=== PATIENT | male | born 1995 | race Caucasian/White ===

== ENCOUNTER 2017-05-20 10:50 | Inpatient (IN) | payer BC ==
[2017-05-20 12:09] LABS: Hematocrit 48 % (42-52); Mean Corpuscular HGB Conc 34 g/dl (31-36); Mean Corpuscular Hemoglobin 30 pg (27-31); Mean Corpuscular Volume 90 fL (80-94); Mean Platelet Volume 8 um3 (7.4-10.4); Red Blood Count 5.28 10^6/ul (4.0-5.4); Red Cell Distribution Width 13 % (10.5-15); White Blood Count 7.2 10^3/ul (3.5-10.8)
[2017-05-20 12:20] LABS: ALT 29 U/L (7-52); AST 24 U/L (13-39); Alkaline Phosphatase 64 U/L (34-104); Anion Gap 6 mmol/L (2-11); BUN/Creatinine Ratio 19.2 (8-20); Blood Urea Nitrogen 20 mg/dL (6-24); CO2 Carbon Dioxide 27 mmol/L (22-32); Calcium 10.1 mg/dL (8.6-10.3); Chloride 104 mmol/L (101-111); EGFR African American 115.9 (>60); EGFR Non-African American 90.2 (>60); Globulin 2.6 g/dL (2-4); Glucose 92 mg/dL (70-100); Potassium 4.2 mmol/L (3.5-5.0); Sodium 137 mmol/L (133-145); Total Protein 7.6 g/dL (6.4-8.9)
[2017-05-20 12:30] LABS: Benzodiazepine Urine Screen None Detected (None Detect)
[2017-05-20 12:51] LABS: Acetaminophen < 15 mcg/mL; Alcohol < 10 mg/dL (<10); Salicylate < 2.50 mg/dL (<30)
[2017-05-20 12:59] LABS: TSH (Thyroid Stimulating Horm) 0.64 mcIU/mL (0.34-5.60)
[2017-05-20] MEDS ORDERED: Al Hydrox/Mg Hydrox/Simet LIQ* 30 ML UDC PO PRN (15:44)
[2017-05-20] MEDS ORDERED: Acetaminophen TAB* 325 MG PO PRN (15:44)
[2017-05-20] MEDS ORDERED: hydrOXYzine HCL TAB* 50 MG PO PRN (15:45)
--- NOTE | 2017-05-20 18:38 | ED ---
Elder Smith Angela, scribed for Joaquin Arroyo MD on 05/20/17 at 1115 . Psychiatric Complaint - HPI Summary HPI Summary: This pt is a 22 y/o male accompanied by his father presenting to [facility] for SI. Father reports that the pt has stated he does not want to live any longer. Per father, pt has asked him to kill him several times over the past 24 hours. Father states the pt was crying uncontrollably yesterday. Per father, pt has also been sick over the past few days with cough and was taking a prescription cough medicine. Pt currently denies SI. He states he has not had any prior suicide attempts. Pt notes he sees a therapist locally. He is currently on Wellbutrin. PMHx includes depression, substance abuse. Pt states using tobacco, alcohol, and marijuana. - History Of Current Complaint Chief Complaint: EDMentalHealth Time Seen by Provider: 05/20/17 10:55 Hx Obtained From: Patient, Family/Professor Of Violin - father Onset/Duration: Lasting Hours, Still Present Timing: Hours Aggravating Factor(s): Nothing Alleviating Factor(s): Nothing Related History: Positive For: Prior Psychiatric Issues - drug abuse Has Suicidal: Reports: Thoughts - per father. Denies: Has Prior Attempt(s) - Allergies/Home Medications Allergies/Adverse Reactions: Allergies Allergy/AdvReac Type Severity Reaction Status Date / Time No Known Allergies Allergy Verified 05/20/17 10:54 Home Medications: Home Medications buPROPion SR TAB* [Wellbutrin SR TAB*] 150 mg PO QAM 05/20/17 [History Confirmed 05/20/17] busPIRone TAB* [Buspar TAB*] 5 mg PO TID 05/20/17 [History Confirmed 05/20/17] PMH/Surg Hx/FS Hx/Imm Hx Endocrine/Hematology History: Denies: Hx Diabetes Cardiovascular History: Denies: Hx Hypertension Sensory History: Reports: Hx Contacts or Glasses Opthamlomology History: Reports: Hx Contacts or Glasses Psychiatric History: Reports: Hx Depression, Hx Community Mental Health Tx, Hx Substance Abuse Denies: Hx of Violent Episodes Against Others - Surgical History Surgery Procedure, Year, and Place: Adenoids Removed Infectious Disease History: No Infectious Disease History: Denies: Traveled Outside the [place] in Last 30 Days - Family History Known Family History: Positive: Cardiac Disease, Diabetes - Social History Occupation: Student - [employer] Alcohol Use: Weekly Substance Use Type: Reports: Marijuana Smoking Status (MU): Current Every Day Smoker Review of Systems Positive: Other - crying uncontrollably. Negative: Fever, Chills Positive: Cough Neurological: Other - NEG: SI, prior suicidal attempts All Other Systems Reviewed And Are Negative: Yes Physical Exam - Summary Physical Exam Summary: VITAL SIGNS: Reviewed. GENERAL: Patient is a well-developed and nourished male who is lying comfortable in the stretcher. Patient is not in any acute respiratory distress. HEAD AND FACE: No signs of trauma. No ecchymosis, hematomas or skull depressions. No sinus tenderness. EYES: PERRLA, EOMI x 2, No injected conjunctiva, no nystagmus. EARS: Hearing grossly intact. Ear canals and tympanic membranes are within normal limits. MOUTH: Oropharynx within normal limits. NECK: Supple, trachea is midline, no adenopathy, no JVD, no carotid bruit, no c- spine tenderness, neck with full ROM. CHEST: Symmetric, no tenderness at palpation LUNGS: Clear to auscultation bilaterally. No wheezing or crackles. CVS: Regular rate and rhythm, S1 and S2 present, no murmurs or gallops appreciated. ABDOMEN: Soft, non-tender. No signs of distention. No rebound no guarding, and no masses palpated. Bowel sounds are normal. EXTREMITIES: FROM in all major joints, no edema, no cyanosis or clubbing. NEURO: Alert and oriented x 3. No acute neurological deficits. Speech is normal and follows commands. SKIN: Dry and warm Triage Information Reviewed: Yes Vital Signs On Initial Exam: Initial Vitals Temp Pulse Resp BP Pulse Ox 99.2 F 81 20 146/78 95 05/20/17 10:51 05/20/17 10:51 05/20/17 10:51 05/20/17 10:51 05/20/17 10:51 Vital Signs Reviewed: Yes Diagnostics - Vital Signs Vital Signs Temp Pulse Resp BP Pulse Ox 05/20/17 10:51 99.2 F 81 20 146/78 95 - Laboratory Lab Results: Lab Results 05/20/17 05/20/17 05/20/17 Range/Units 11:30 11:50 11:50 WBC 7.2 (3.5-10.8) 10^3/ul RBC 5.28 (4.0-5.4) 10^6/ul Hgb 16.0 (14.0-18.0) g/dl Hct 48 (42-52) % MCV 90 (80-94) fL MCH 30 (27-31) pg MCHC 34 (31-36) g/dl RDW 13 (10.5-15) % Plt Count 207 (150-450) 10^3/ul MPV 8 (7.4-10.4) um3 Neut % (Auto) 64.8 (38-83) % Lymph % (Auto) 21.7 L (25-47) % Thomas % (Auto) 8.0 (1-9) % Eos % (Auto) 4.8 (0-6) % Baso % (Auto) 0.7 (0-2) % Absolute Neuts (auto) 4.7 (1.5-7.7) 10^3/ul Absolute Lymphs (auto) 1.6 (1.0-4.8) 10^3/ul Absolute Monos (auto) 0.6 (0-0.8) 10^3/ul Absolute Eos (auto) 0.3 (0-0.6) 10^3/ul Absolute Basos (auto) 0.1 (0-0.2) 10^3/ul Absolute Nucleated RBC 0 10^3/ul Nucleated RBC % 0 Sodium 137 (133-145) mmol/L Potassium 4.2 (3.5-5.0) mmol/L Chloride 104 (101-111) mmol/L Carbon Dioxide 27 (22-32) mmol/L Anion Gap 6 (2-11) mmol/L BUN 20 (6-24) mg/dL Creatinine 1.04 (0.67-1.17) mg/dL Est GFR ( Amer) 115.9 (>60) Est GFR (Non-Af Amer) 90.2 (>60) BUN/Creatinine Ratio 19.2 (8-20) Glucose 92 (70-100) mg/dL Calcium 10.1 (8.6-10.3) mg/dL Total Bilirubin 1.00 (0.2-1.0) mg/dL AST 24 (13-39) U/L ALT 29 (7-52) U/L Alkaline Phosphatase 64 (34-104) U/L Total Protein 7.6 (6.4-8.9) g/dL Albumin 5.0 (3.2-5.2) g/dL Globulin 2.6 (2-4) g/dL Albumin/Globulin Ratio 1.9 (1-3) TSH 0.64 (0.34-5.60) mcIU/mL Salicylates < 2.50 (<30) mg/dL Urine Opiates Screen None detected (None Detect) Acetaminophen < 15 mcg/mL Ur Barbiturates Screen None detected (None Detect) Ur Phencyclidine Scrn None detected (None Detect) Ur Amphetamines Screen None detected (None Detect) U Benzodiazepines Scrn None detected (None Detect) Urine Cocaine Screen None detected (None Detect) U Cannabinoids Screen Presumptive positive H (None Detect) Serum Alcohol < 10 (<10) mg/dL Result Diagrams: 05/20/17 11:50 05/20/17 11:50 Lab Statement: Any lab studies that have been ordered have been reviewed, and results considered in the medical decision making process. Course/Dx - Course Assessment/Plan: This pt is a 22 y/o male accompanied by his father presenting to [facility] for SI. Father reports that the pt has stated he does not want to live any longer. Per father, pt has asked him to kill him several times over the past 24 hours. Father states the pt was crying uncontrollably yesterday. Per father, pt has also been sick over the past few days with cough and was taking a prescription cough medicine. Pt currently denies SI. He states he has not had any prior suicide attempts. Pt notes he sees a therapist locally. He is currently on Wellbutrin. PMHx includes depression, substance abuse. Pt states using tobacco, alcohol, and marijuana. Test results without any significant abnormalities except for positive cannabinoids. Pt is medically cleared. He is waiting for [facility]. Pt is hemodynamically stable, alert and oriented x3. Pt was seen and evaluated by Dr. Nation, who recommends admission. Pt will be involuntarily admitted to [facility] with a diagnosis of depression. - Differential Dx/Clinical Impression Differential Diagnosis/HQI/PQRI: Positive: Anxiety, Depression, Suicidal Ideation Provider Diagnosis: Depression Discharge - Discharge Plan Condition: Stable Disposition: [facility]CHIATRIC FACILITY-[facility] The documentation as recorded by the Elder maza Angela accurately reflects the service I personally performed and the decisions made by me, Joaquin Arroyo MD.
[2017-05-20] MEDS: busPIRone TAB* 5 MG PO SCH (21:42)
[2017-05-21] MEDS: busPIRone TAB* 5 MG PO SCH ×2 (08:23→15:57)
[2017-05-21] MEDS ORDERED: buPROPion SR TAB.SR* 150 MG PO SCH (09:00)
--- NOTE | 2017-05-21 10:56 | ADMNOTE ---
Identification - Identify Employment Status: Student Hx Psychiatric Hospitalization: Yes Arrived to Hospital Via: Car History - Objective HPI: HISTORY AND PHYSICAL History of Present Illness 22 yo [facility] brought to the emergency room by father today due to severe depression, 2 days of crying, and active suicidal ideation. patient had contacted father couple of days ago and asked father to kill him because he wanted to be . Parents were concerned so they drove from [place] to [place] and subsequently brought Blake to the ED for evaluation. Majority of history taken from patient who is reliable historian. Blake reports he is an only child and [place] [place]. 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 no hyperactivty, oppositional behavior, impulse control problems, conduct problems in his history. 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 Blake reports that over past 4 years he has noticed a pattern of periods of depression which alternate or give way to periods of elevated mood( see below)He reports depressions predominate and can last weeks or months. during this time the level of his dysphoria can wax and wane. other symptoms include anergia, amotivation, hypersomnolence, tendency to isolate, low self esteem, preoccupation with negative themes, feeling of worthlessness and hopelessness and suicidal ideation. Blake was hospitalized for first time in first semester of his soph year during one of these depressive periods. He was abusing alcohol heavily during that time. He was discharged on no medication as his suicidal ideation remitted after detoxification in the hospital. 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 He was prescribed Lexapro and Gabapentin. He reports lexapro helped with depression and his suicidal thoughts quite a bit. He subsequently went to [facility] for 6 months to do rest of sophmore year abroad. He reports drinking heavily and using marijuana heavily during this time. He was inconsistent with his medications. for most of drew year and senior year He has become aware that his depressions are often punctuated by periods of heriberto which often last as longs as 7 to 10 days. during these times he describes increased goal directed behavior (cleaning all night), ruminating endlessly about projects that he would like to complete in his major , excessive speech, racing thoughts, inflated self worth, grandiose delusions (believes that he is a god or "demigod with special abilities and de la torre"). overspending. despite having GPA of 3.7 Blake reports he is consumed and preoccupied with anxiety worry and dread. He procrastinates all of his work to the last moments and as a result he is possessed with fear that he will not complete his projects and will fail. took on independent study this semester and did not initiate any of the work and as a result he had to abandon the project. severe sleep disturbance Past Psychiatric history: as above. no history of suicide attempts, history of SI during depressive periods in past no history of self injury family history significant for father with ADHD and Bipolar Disorder PMH: none no allergies Psychosocial History: grew up in [place]. attended [employer] from K through 12 th grade. mother is a data sciences director. Father is a microfilm equipment inspector. Did well academically in school doing well currently in [place] with 3.7 GPA however crippled by his avoidance of school work, racing thoughts, mood dysregulation, agitation. no legal problems. currently has a girlfriend. He is sexually active. denies history of physical or sexual trauma. Substance History: Cannabis use since high school. smokes 3 to 4 times daily Alcohol use has escalated in college. drank heavily sophmore year tends to drink and abuse marijuana as aself medication for his mood swings. denies other drug use. Vital Signs admission vitals were all within normal limits ROS: non contributory per Dr. Arroyo who cleared patient medicall in the Emergency room on 05/20/2017 Physical Exam: unremarkable per Dr. Arroyo who performed complete physical. see Dr. Arroyo H and P dated 05/20/2017 Lab Results: Laboratory Last Values WBC 7.2 10^3/ul (3.5-10.8) 05/20/17 11:50 RBC 5.28 10^6/ul (4.0-5.4) 05/20/17 11:50 Hgb 16.0 g/dl (14.0-18.0) 05/20/17 11:50 Hct 48 % (42-52) 05/20/17 11:50 MCV 90 fL (80-94) 05/20/17 11:50 MCH 30 pg (27-31) 05/20/17 11:50 MCHC 34 g/dl (31-36) 05/20/17 11:50 RDW 13 % (10.5-15) 05/20/17 11:50 Plt Count 207 10^3/ul (150-450) 05/20/17 11:50 MPV 8 um3 (7.4-10.4) 05/20/17 11:50 Neut % (Auto) 64.8 % (38-83) 05/20/17 11:50 Lymph % (Auto) 21.7 % (25-47) L 05/20/17 11:50 Owen % (Auto) 8.0 % (1-9) 05/20/17 11:50 Eos % (Auto) 4.8 % (0-6) 05/20/17 11:50 Baso % (Auto) 0.7 % (0-2) 05/20/17 11:50 Absolute Neuts (auto) 4.7 10^3/ul (1.5-7.7) 05/20/17 11:50 Absolute Lymphs (auto) 1.6 10^3/ul (1.0-4.8) 05/20/17 11:50 Absolute Monos (auto) 0.6 10^3/ul (0-0.8) 05/20/17 11:50 Absolute Eos (auto) 0.3 10^3/ul (0-0.6) 05/20/17 11:50 Absolute Basos (auto) 0.1 10^3/ul (0-0.2) 05/20/17 11:50 Absolute Nucleated RBC 0 10^3/ul 05/20/17 11:50 Nucleated RBC % 0 05/20/17 11:50 Sodium 137 mmol/L (133-145) 05/20/17 11:50 Potassium 4.2 mmol/L (3.5-5.0) 05/20/17 11:50 Chloride 104 mmol/L (101-111) 05/20/17 11:50 Carbon Dioxide 27 mmol/L (22-32) 05/20/17 11:50 Anion Gap 6 mmol/L (2-11) 05/20/17 11:50 BUN 20 mg/dL (6-24) 05/20/17 11:50 Creatinine 1.04 mg/dL (0.67-1.17) 05/20/17 11:50 Est GFR ( Amer) 115.9 (>60) 05/20/17 11:50 Est GFR (Non-Af Amer) 90.2 (>60) 05/20/17 11:50 BUN/Creatinine Ratio 19.2 (8-20) 05/20/17 11:50 Glucose 92 mg/dL (70-100) 05/20/17 11:50 Calcium 10.1 mg/dL (8.6-10.3) 05/20/17 11:50 Total Bilirubin 1.00 mg/dL (0.2-1.0) 05/20/17 11:50 AST 24 U/L (13-39) 05/20/17 11:50 ALT 29 U/L (7-52) 05/20/17 11:50 Alkaline Phosphatase 64 U/L (34-104) 05/20/17 11:50 Total Protein 7.6 g/dL (6.4-8.9) 05/20/17 11:50 Albumin 5.0 g/dL (3.2-5.2) 05/20/17 11:50 Globulin 2.6 g/dL (2-4) 05/20/17 11:50 Albumin/Globulin Ratio 1.9 (1-3) 05/20/17 11:50 TSH 0.64 mcIU/mL (0.34-5.60) 05/20/17 11:50 Salicylates < 2.50 mg/dL (<30) 05/20/17 11:50 Urine Opiates Screen None detected (None Detect) 05/20/17 11:30 Acetaminophen < 15 mcg/mL 05/20/17 11:50 Ur Barbiturates Screen None detected (None Detect) 05/20/17 11:30 Ur Phencyclidine Scrn None detected (None Detect) 05/20/17 11:30 Ur Amphetamines Screen None detected (None Detect) 05/20/17 11:30 U Benzodiazepines Scrn None detected (None Detect) 05/20/17 11:30 Urine Cocaine Screen None detected (None Detect) 05/20/17 11:30 U Cannabinoids Screen Presumptive positive (None Detect) H 05/20/17 11:30 Serum Alcohol < 10 mg/dL (<10) 05/20/17 11:50 Exam Appearance: Well Developed/Nourished Hygiene: Normal Grooming: Fairly Well Kept Psychomotor Activities: Normal Exhibits Abnormal Movement: No Attitude and Relatedness: Well Related Eye Contact: Good - Speech Quality: Unpressured Latencies: Normal Quantity: Appropriate Patient's Decription of Mood: depressed Observed Affect: Labile Affect Consistent with: Dysphoria Patient's Thought Process: Over Inclusive Thought Content: Yes Passive Wish - hopeless, strong wish to end his life , Yes Suicidal Planning - asked father to end his life, contracts to let staff know if he has urge to act on his suicidal thoughts, No Homicidal Ideation, No Paranoid Ideation Experiencing Hallucinations: No, Sensorium is Clear Type of Hallucinations: Visual: No, Auditory: No, Command: No Level of Consciousness: Alert Orientation: Yes Intact, Yes Orientated to Time, Yes Orientated to Place, Yes Orientated to Person Impulse Control: Intact Insight and Judgement: Fair Impression - Impression Clinical Impression: 22 year old senior with history of child onset attention deficits, depressive symptoms since mid teens and in past 4 years prescence of manic episodes lasting 1 to 2 weeks which alternate with depressive episodes with longer duration. patient last had manic episode in March 2017 which lasted two weeks. since then he has been in a profoundly depressed state, unable to function at school, and preoccupied with thoughts of ending his life. patient was brought to hospital by his father. He is gravely disabled and presents as a potential danger to self given the severity of his suicidal ideation. He requires inpatient psychiatric admission and is admitted on involuntary status Inpatient DSM-IV Dx: Bipolar Disorder Type I current episode Depressed severe without psychotic features. Attention Deficit Hyperactivity Disorder inattentive type. anxiety disorder unspecified Merits Inpatient Hospitalization: Yes Plan - Treatment Plan Treatment Plan: Plan: admit to [facility] on involuntary status Q15 min observation blood to be drawn in am for b12, folate, free T4, Total T4, rpr,lyme screen d/c Buspar Change Wellbutrin Sr to XR formulation and increase to 300 mg QAM to target adhd and depressive symptoms Start Depakote ER 500 mg X 1 day then 750 mg X 1 day then 1000 mg QHS thereafter for maintenance and preventetive treatment of Bipolar I Start Latuda 20 mg q5 pm with food for acute/abortive treatment of bipolar depressive episode Temazepam 15 mg qhs prn insomnia. may repeat X1 nightly On 05/24/2017 begin Focalin ER 15 mg QAM for treatment of ADHD patient and his parents gave informed consent to start the above medications Continued Medication Management: Start Medication - see above Medications: Current Medications Acetaminophen (Tylenol Tab*) 650 mg PO Q4H PRN PRN Reason: for pain; or Temp >101 F Al Hydrox/Mg Hydrox/Simethicone (Maalox Plus*) 30 ml PO Q4H PRN PRN Reason: INDIGESTION Bupropion HCl (Wellbutrin Sr Tab*) 150 mg PO DAILY [facility] Last Admin: 05/21/17 08:23 Dose: 150 mg Buspirone HCl (Buspar Tab*) 5 mg PO TID [facility] Last Admin: 05/21/17 08:23 Dose: 5 mg Hydroxyzine HCl (Atarax Tab*) 50 mg PO Q6H PRN PRN Reason: ANXIETY - Discharge Plan Discharge Plan: Outpatient Follow Up - partial hospitalization program/ intensive outpatient program in [place], patient will be taking semester off from college and returning [facility] with his parents. , psychiatrist appointment [facility] upon discharge
[2017-05-21] MEDS: Lurasidone(*) 20 MG TAB PO SCH (17:18)
[2017-05-21] MEDS ORDERED: LORazepam TAB(*) 0.5 MG PO PRN ×2 (20:04→20:10)
[2017-05-21] MEDS ORDERED: Divalproex ER TAB(*) 500 MG PO ONE (21:00)
[2017-05-21] MEDS: Temazepam CAP* 15 MG PO PRN (21:15)
[2017-05-22] MEDS: BuPROPion XL* 300 MG TAB.XL PO SCH (08:27)
[2017-05-22] MEDS: Lurasidone(*) 20 MG TAB PO SCH (17:35)
[2017-05-22] MEDS: Temazepam CAP* 15 MG PO PRN (20:45)
[2017-05-22] MEDS ORDERED: Divalproex ER TAB(*) 250 MG PO ONE (21:00)
[2017-05-23] MEDS: BuPROPion XL* 300 MG TAB.XL PO SCH (07:58)
[2017-05-23] MEDS ORDERED: Mouth Piece, Nicotine* 1 EACH CARTRIDGE INH ONE (13:00)
[2017-05-23] MEDS: Nicotine Inhaler* 10 MG AMP INH PRN (14:06)
[2017-05-23] MEDS: Lurasidone(*) 20 MG TAB PO SCH (17:18)
--- NOTE | 2017-05-23 17:23 | PN ---
Subjective - Subjective Service Type: 92710 Hosp care 15 min low complexity Subjective: Earlier in the morning Blake vomited twice after he took his meds in empty stomach and was continuing to have N & V until he ate. It was much less later during the day. Still feeling sad and suicidal which he doesn't think as pressing as it was before admission here. Also he is able to distract self better now. His parents' visit was helpful. Objective - Appearance Appearance: Well Developed/Nourished Dysmorphic Features: No Hygiene: Normal Grooming: Fairly Well Kept - Behavior Psychomotor Activities: Normal Exhibits Abnormal Movement: No - Attitude and Relatedness Attitude and Relatedness: Appropriate Eye Contact: Good - Speech Quality: Unpressured Latencies: Normal Quantity: Appropriate - Mood Patient's Decription of Mood: "Okay" - Affect Observed Affect: Non-labile - Thought Process Patient's Thought Process: Coherent, Goal Directed Thought Content: Yes Passive Wish, No Suicidal Planning, No Homicidal Ideation, No Paranoid Ideation - Sensorium Experiencing Hallucinations: No, Sensorium is Clear Type of Hallucinations: Visual: No, Auditory: No, Command: No - Level of Consciousness Level of Consciousness: Alert Orientation: Yes Intact, Yes Orientated to Time, Yes Orientated to Place, Yes Orientated to Person - Impulse Control Impulse Control: Intact - Insight and Judgement Insight and Judgement: Fair - Group Participation Particating in Group Activities: Yes - Medication Management Medication Management Adherence: Yes Assessment - Assessment Merits Inpatient Hospitalization: For Stabilization, For Discharge Planning Inpatient DSM-IV Dx: Bipolar Disorder Type I current episode Depressed severe without psychotic features. Attention Deficit Hyperactivity Disorder inattentive type. anxiety disorder unspecified Clinical Impression: Improving but still depressed and suicidal. Plan - Plan Treatment Plan: Name: BLAKE SHELTON Birthdate: 1995 [id number] Continued Medication Management: Continue Outpt Medication Medications: Current Medications Acetaminophen (Tylenol Tab*) 650 mg PO Q4H PRN PRN Reason: for pain; or Temp >101 F Al Hydrox/Mg Hydrox/Simethicone (Maalox Plus*) 30 ml PO Q4H PRN PRN Reason: INDIGESTION Last Admin: 05/23/17 09:23 Dose: 30 ml Bupropion HCl (Bupropion Xl*) 300 mg PO DAILY [facility] PRN Reason: Protocol Last Admin: 05/23/17 07:58 Dose: 300 mg Dexmethylphenidate HCl (Focalin Xr (Nf)) 15 mg PO DAILY [facility] Divalproex Sodium (Depakote Er Tab(*)) 1,000 mg PO BEDTIME [facility] Lorazepam (Ativan Tab(*)) 1 mg PO Q4H PRN PRN Reason: AGITATION/ANXIETY (SEVERE) Lorazepam (Ativan Tab(*)) 0.5 mg PO Q4H PRN PRN Reason: ANXIETY Last Admin: 05/23/17 02:59 Dose: 0.5 mg Lurasidone HCl (Latuda) 20 mg PO Q24H [facility] Last Admin: 05/22/17 17:35 Dose: 20 mg Nicotine (Nicotine Inhaler*) 10 mg INH Q2H PRN PRN Reason: CRAVINGS Last Admin: 05/23/17 14:06 Dose: 10 mg Temazepam (Restoril Cap*) 15 mg PO BEDTIME PRN PRN Reason: INSOMNIA Last Admin: 05/22/17 20:45 Dose: 15 mg - Discharge Plan Discharge Plan: Outpatient Follow Up Outpatient Program: Counseling/Psych Services at [facility]
[2017-05-23] MEDS: Divalproex ER TAB(*) 500 MG PO SCH (20:15)
[2017-05-23] MEDS: Temazepam CAP* 15 MG PO PRN (20:16)
[2017-05-24] MEDS: Temazepam CAP* 15 MG PO PRN (04:07)
[2017-05-24] MEDS: BuPROPion XL* 300 MG TAB.XL PO SCH (08:17)
[2017-05-24] MEDS: DEXMETHYLPHENIDATE 15 MG PO SCH (08:17)
[2017-05-24] MEDS: Nicotine Inhaler* 10 MG AMP INH PRN ×2 (08:32→15:18)
[2017-05-24] MEDS: LORazepam TAB(*) 1 MG PO PRN (10:29)
--- NOTE | 2017-05-24 12:01 | PN ---
[facility]: Group Therapy Note - Service Type Service Type: 13084 Group Psychotherapy - Cognitive Behavioral Group Therapy ( CBT):Patient was attentive and participatory in CBT programming this morning, and remained in good behavioral control. Patient expressed positive insights regarding relevant treatment interventions and goals. Blake discussed recent experiences and thoughts of suicide in an earnest and compelling fashion, and responded positively to staff and peer discussion of thoughts and peceptions. Concerns regarding bipolar I condition are secondary to poor sleep hygiene and grandiose thoughts and beliefs.
--- NOTE | 2017-05-24 15:56 | PN ---
Subjective - Subjective Service Type: 49100 Hosp care 25 min moderate complexity Subjective: weekend staff progress notes reviewed, patient interviewed X 60 min had episode of nausea/emesis over weekend but this has remitted denies any blurry vision, oversedation, dry mouth, dizziness, tachycardia, palpitations, headache, diarrhea, abdominal pain, akithisia, involuntary movements, muscle contractions , neck pain, pain with swallowing, facial tics. parents visited over weekend as they are staying locally in hotel. very productive session today: psychoeducation about ADHD, bipolar disorder, anxiety took up majority of session. Blake was very receptive to idea of learning how he can manage his symptoms by various interventions including mindfulness, CBT, DBT, relaxation, learning self monitoring techniques, learning to focus on self, learning to say no and not overextending one self, Blake also receptive to going to a [facility] adult intensive outpatient program in [place] after his discharge from hospital. He also agreed that taking medical leave from [employer] is necessary to allow him recovery time he needs. used ativan 1 mg once on wednesday and again this morning with very good effect. both times he was feeling highly anxious with racing thoughts and the ativan helped. seems to have anxiety and racing thoughts intermittently throughout the day. feels like groups are helping him alot and distracting him from negative thoughts. took focalin XR 15 mg for first time today. He feels greater clarity this morning. felt racy 90 min after taking it but then asked for ativan and has felt very calm and focused since then. NOTICES IMPROVED ENERGY,"NO DOG TIRED LIKE I USUALLY FEEL" REPORTS THAT HE USUALLY CAN FALL ASLEEP RAPIDLY THROUGH OUT THE DAY. not sleeping very well with Temazepam. MSE: well developed and nourished, good eyecontact. speech normal rate and volume mood: anxious, dysphoric affect full range normal psychomotor behavior TP organized TC: continues to have suicidal ideation passive, feels hopeless, feelings of worthless, no active intent or plan to harm self, no psychotic symptoms, no AH,VH,HI Alert and fully oriented. concentratin and short term memory impaired. insight partial judgment fair. Objective - Appearance Appearance: Well Developed/Nourished Dysmorphic Features: No Hygiene: Normal Grooming: Well Kept - Behavior Psychomotor Activities: Normal Exhibits Abnormal Movement: No - Attitude and Relatedness Attitude and Relatedness: Cooperative Eye Contact: Good - Speech Quality: Unpressured Latencies: Normal Quantity: Appropriate - Mood Patient's Decription of Mood: "Anxious" - Affect Observed Affect: Non-labile Affect Consistent with: Dysphoria - Thought Process Patient's Thought Process: Over Inclusive Thought Content: Yes Passive Wish, No Suicidal Planning, No Homicidal Ideation, No Paranoid Ideation - Sensorium Experiencing Hallucinations: No, Sensorium is Clear Type of Hallucinations: Visual: No, Auditory: No, Command: No - Level of Consciousness Level of Consciousness: Alert Orientation: Yes Intact, Yes Orientated to Time, Yes Orientated to Place, Yes Orientated to Person - Impulse Control Impulse Control: Intact - Insight and Judgement Insight and Judgement: Fair - Group Participation Particating in Group Activities: Yes - Medication Management Medication Management Adherence: Yes Assessment - Assessment Merits Inpatient Hospitalization: For Immediate Safety, For Stabilization, For Discharge Planning Inpatient DSM-IV Dx: Bipolar Disorder Type I current episode Depressed severe without psychotic features. Attention Deficit Hyperactivity Disorder inattentive type. anxiety disorder unspecified Clinical Impression: 22 year old senior with history of child onset attention deficits, depressive symptoms since mid teens and in past 4 years prescence of manic episodes lasting 1 to 2 weeks which alternate with depressive episodes with longer duration. patient last had manic episode in March 2017 which lasted two weeks. since then he has been in a profoundly depressed state, unable to function at school, and preoccupied with thoughts of ending his life. patient was brought to hospital by his father. Today is hospital day 4. patient has begun to show response to medication regimen with mild improvement in mood, greater energy, decreased fatigue. He continues to have suicidal ideation although frequency and severity has diminished. remains on q 15 min observation status. patient is benefitting from [facility] which is teaching him about his illness and fostering strategies for managing his mood, anxiety and attentional difficulties. discharge plan is to solidify intensive outpatient programming in young adult program in [place] and for patient to withdraw from school in order to focus on recovery and treatment. Plan - Plan Treatment Plan: medication plan as follows: Latuda 20 mg QD. increase to 40 mg tomorrow Depakote ER 1000 mg QHS. get VPA level tomorrow in afternoon Focalin XR 15 mg QAM d/c Temazepam at HS start Trazodone 50 mg qhs Start Ativan 1 mg QAM scheduled continue Ativan 1 mg Q4H prn agitation or anxiety WEllbutrin XL 300 mg QAM get VPA level tomorrow afternoon Medications: Current Medications Acetaminophen (Tylenol Tab*) 650 mg PO Q4H PRN PRN Reason: for pain; or Temp >101 F Last Admin: 05/24/17 10:15 Dose: 650 mg Al Hydrox/Mg Hydrox/Simethicone (Maalox Plus*) 30 ml PO Q4H PRN PRN Reason: INDIGESTION Last Admin: 05/23/17 09:23 Dose: 30 ml Bupropion HCl (Bupropion Xl*) 300 mg PO DAILY [facility] PRN Reason: Protocol Last Admin: 05/24/17 08:17 Dose: 300 mg Dexmethylphenidate HCl (Focalin Xr (Nf)) 15 mg PO DAILY [facility]IN Last Admin: 05/24/17 08:17 Dose: 15 mg Divalproex Sodium (Depakote Er Tab(*)) 1,000 mg PO BEDTIME KARIN Last Admin: 05/23/17 20:15 Dose: 1,000 mg Lorazepam (Ativan Tab(*)) 1 mg PO Q4H PRN PRN Reason: AGITATION/ANXIETY (SEVERE) Last Admin: 05/24/17 10:29 Dose: 1 mg Lorazepam (Ativan Tab(*)) 0.5 mg PO Q4H PRN PRN Reason: ANXIETY Last Admin: 05/23/17 02:59 Dose: 0.5 mg Lorazepam (Ativan Tab(*)) 1 mg PO DAILY [facility] Lurasidone HCl (Latuda) 20 mg PO Q24H KARIN Last Admin: 05/23/17 17:18 Dose: 20 mg Nicotine (Nicotine Inhaler*) 10 mg INH Q2H PRN PRN Reason: CRAVINGS Last Admin: 05/24/17 15:18 Dose: 10 mg Trazodone HCl (Desyrel Tab*) 50 mg PO BEDTIME KARIN - Discharge Plan Discharge Plan: Outpatient Follow Up - intensive outpatient program post discharge Outpatient Program: Private Clinician(s) - private psychiatrist in [facility] after discharge from hospital
[2017-05-24] MEDS: Lurasidone(*) 20 MG TAB PO SCH (17:21)
[2017-05-24] MEDS: Divalproex ER TAB(*) 500 MG PO SCH (20:10)
[2017-05-24] MEDS ORDERED: traZODone TAB* 50 MG TAB PO SCH (21:00)
[2017-05-25] MEDS: LORazepam TAB(*) 1 MG PO PRN (04:53)
[2017-05-25] MEDS: DEXMETHYLPHENIDATE 15 MG PO SCH (08:04)
[2017-05-25] MEDS: LORazepam TAB(*) 1 MG PO SCH (08:04)
[2017-05-25] MEDS: BuPROPion XL* 300 MG TAB.XL PO SCH (08:04)
[2017-05-25] MEDS: Nicotine Inhaler* 10 MG AMP INH PRN ×4 (08:23→19:04)
[2017-05-25] MEDS ORDERED: LORazepam TAB(*) 1 MG PO PRN (12:10)
[2017-05-25] MEDS ORDERED: chlorproMAZINE TAB* 25 MG PO PRN (13:46)
[2017-05-25] MEDS ORDERED: Mouth Piece, Nicotine* 1 EACH CARTRIDGE ONE (14:03)
--- NOTE | 2017-05-25 14:50 | PN ---
Subjective - Subjective Service Type: 72174 Hosp care 15 min low complexity Subjective: Patient did not sleep well last night with Trazodone He had difficulty falling asleep and then had multiple mid night awakenings. continues to describe racing thoughts mostly in the form of worrying about future and present. themes are his mental health issues, his options for taking leave from school which I have told him is necessary in order for him to recover from this episode of illness, his fears that he will fall back into old patterns of behaving and thinking. Blake continues to have intermittent thoughts of suicide-these occur when he feels helpless, hopeless or unable to solve a problem. During these times he is experiencing marked anxiety and often dyphoria Because he has not had strategies for managing his anxiety/dysphoria and medication to alleviate it, his strategy has been to fantasize about as a way of ending his emotional pain. Blake is beginning to understand that anxiety and mood disorders are treatable and will respond to interventions. He has been attending all groups and has been very postive about what he is learning. energy level, level of alertness during the day, and attention span have improved with focalin XR. less internally distracted when he reads and reports that he feels more awake and has greater initiative. 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 I suggested that visiting Blake less would help decrase pressure Katey feels to get better quick and to please his parents. they understood this. mother in touch with school about his options for leave of absence for the rest of this semester I explained to parents that my recommendation is for Katey to have continued adjustment of medication until mood is stable, sleep is regulated, and anxiety is reduced. I see discharge as being sometime next week depending on his response to medications. After discharge, Blake will attend intensive outpatient program for 6 to 8 weeks in [facility]. I have also recommended that parents take him to private psychiatrist for medication management He will likely return to [facility] in late july. he will continue with his therapist weekly upon return to school in late july. MSE: well developed and nourished speech: incrased rate, mild pressure, TP organized, tangential at times TC: overinclusive, generalized worrys about multiple topics, tendency to overthink, obsessional style, passive suicidal ideation intermittent no intent or plan contracts for safety. no hallucinations or paranoia. insight and judgment intact alert and fully oriented. concentration and attention span mildly impaired. Laboratory Results - last 24 hr 05/25/17 05/25/17 15:10 15:10 WBC 7.3 RBC 5.29 Hgb 16.1 Hct 47 MCV 89 MCH 31 MCHC 34 RDW 13 Plt Count 221 MPV 8 Neut % (Auto) 55.7 Lymph % (Auto) 29.3 [place] % (Auto) 11.4 H Eos % (Auto) 2.8 Baso % (Auto) 0.8 Absolute Neuts (auto) 4.0 Absolute Lymphs (auto) 2.1 Absolute Monos (auto) 0.8 Absolute Eos (auto) 0.2 Absolute Basos (auto) 0.1 Absolute Nucleated RBC 0.01 Nucleated RBC % 0.1 AST 23 ALT 23 Valproic Acid 69.0 Assessment - Assessment Merits Inpatient Hospitalization: For Immediate Safety, For Stabilization Inpatient DSM-IV Dx: Bipolar Disorder Type I current episode Depressed severe without psychotic features. Attention Deficit Hyperactivity Disorder inattentive type. Generalized Anxiety Disorder Clinical Impression: 22 year old senior with history of child onset attention deficits, depressive symptoms since mid teens and in past 4 years prescence of manic episodes lasting 1 to 2 weeks which alternate with depressive episodes with longer duration. patient last had manic episode in March 2017 which lasted two weeks. since then he has been in a profoundly depressed state, unable to function at school, and preoccupied with thoughts of ending his life. patient was brought to hospital by his father. patient continues with insomnia. He remains very anxious and has racing thoughts. mood has become more mixed (hypomanic and dysphoric) in last 1 to 2 days. He continues to have suicidal ideation although frequency and severity has diminished. Patient continues to require medicatin adjustment for mood stabalization, to regulate sleep, and to provide safety until suicidal ideatino has remitted completely. patient is benefitting from [facility] which is teaching him about his illness and fostering strategies for managing his mood, anxiety and attentional difficulties. discharge plan is to solidify intensive outpatient programming in young adult program in [place] and for patient to withdraw from school in order to focus on recovery and treatment. Plan - Plan Treatment Plan: medication plan as follows: D/C Latuda Start Seroquel XR 200 mg Q 5 pm to treat mixed bipolar mood symptoms, and to promote sleep Increase Depakote ER to 1250 mg (VPA trough 69 after 3 doses of 1000 mg) Continue Focalin XR 15 mg QAM D/C Trazodone Give Ativan 2 mg QHS Give Ativan 1 mg QAM Ativan 1 mg Q4h prn anxiety/agitation WEllbutrin XL 300 mg QAM Chlorpromazine 25 mg QHS prn insomnia may repeat X 1 discharge planning: solidify IOP for discharge
--- NOTE | 2017-05-25 14:57 | PN ---
MHU: Group Therapy Note - Service Type Service Type: [id number] Group Psychotherapy - Cognitive Behavioral Group Therapy ( CBT):Patient was attentive and participatory in CBT programming this morning, and remained in good behavioral control. Patient expressed positive insights regarding relevant treatment interventions and goals.
[2017-05-25 15:25] LABS: Hematocrit 47 % (42-52); Hemoglobin 16.1 g/dl (14.0-18.0); Mean Corpuscular HGB Conc 34 g/dl (31-36); Mean Corpuscular Hemoglobin 31 pg (27-31); Mean Corpuscular Volume 89 fL (80-94); Mean Platelet Volume 8 um3 (7.4-10.4); Red Blood Count 5.29 10^6/ul (4.0-5.4); Red Cell Distribution Width 13 % (10.5-15); White Blood Count 7.3 10^3/ul (3.5-10.8)
[2017-05-25] MEDS ORDERED: QUEtiapine XR TAB* 200 MG PO SCH (17:00)
[2017-05-25] MEDS: Divalproex ER TAB(*) 250 MG PO SCH (20:16)
[2017-05-25] MEDS ORDERED: LORazepam TAB(*) 1 MG PO SCH (21:00)
[2017-05-26] MEDS: DEXMETHYLPHENIDATE 15 MG PO SCH (08:00)
[2017-05-26] MEDS: BuPROPion XL* 300 MG TAB.XL PO SCH (08:00)
[2017-05-26] MEDS: LORazepam TAB(*) 1 MG PO SCH (08:00)
[2017-05-26] MEDS: Nicotine Inhaler* 10 MG AMP INH PRN ×4 (08:15→20:13)
--- NOTE | 2017-05-26 11:40 | PN ---
MHU: Group Therapy Note - Service Type Service Type: [id number] Group Psychotherapy - Cognitive Behavioral Group Therapy ( CBT):Patient was attentive and participatory in CBT programming this morning, and remained in good behavioral control. Patient expressed positive insights regarding relevant treatment interventions and goals.
--- NOTE | 2017-05-26 12:24 | PN ---
Subjective - Subjective Service Type: 22932 Hosp care 15 min low complexity Subjective: Per nursing slept through the night attending all groups and appears to be benefitting from what he is learning appropriate and cooperative with staff visible on the unit denies any side effects from medication denies dystonia, rapid heart rate,feeling overly tired or sedated, difficulty swallowing Met with Blake X 60 min Mental Status: He continues to have significant level of anxiety, obsessional rumination, overthinking, self doubt. reports feeling less internal distractibility when he reads, mood remains anxious and dysphoric. also has hypomanic symptoms of rapid speech, racing thoughts, distractibility. suicidal thoughts decreased in severity and frequency. patients thoughts of occur when he feels frustrated and helpless due to his anxiety or his disorganization due to his ADHD. he denies intent,plan or impulse to act. he contracts to let staff know if he develops impulse to harm self. he requested q 30 min privileges. SLEPT 9 HOURS last night (after starting Seroquel XR and HS Ativan). woke up three times but returned to sleep rapidly. no morning hang over. TP organized TC no hallucinations or delusions. insight and judgment intact Assessment - Assessment Merits Inpatient Hospitalization: For Stabilization Inpatient DSM-IV Dx: Bipolar Disorder Type I current episode Depressed severe without psychotic features. Attention Deficit Hyperactivity Disorder inattentive type. Generalized Anxiety Disorder Clinical Impression: 22 year old senior with history of child onset attention deficits, depressive symptoms since mid teens and in past 4 years prescence of manic episodes lasting 1 to 2 weeks which alternate with depressive episodes with longer duration. patient last had manic episode in March 2017 which lasted two weeks. since then he has been in a profoundly depressed state, unable to function at school, and preoccupied with thoughts of ending his life. patient was brought to hospital by his father. patient continues with insomnia. He remains very anxious and has racing thoughts. He continues to have suicidal ideation although frequency and severity have diminished. Patient continues to require medication adjustment for mood stabilization, to regulate sleep, and to provide safety until suicidal ideation has remitted completely. patient is benefitting from [facility] which is teaching him about his illness and fostering strategies for managing his mood, anxiety and attentional difficulties. discharge plan is to solidify intensive outpatient programming in young adult program in [place] and for patient to withdraw from school in order to focus on recovery and treatment. Plan - Plan Treatment Plan: medication plan as follows: Increase Seroquel XR to 300 mg Q 5 pm to treat mixed bipolar mood symptoms, and to promote sleep continue Depakote ER to 1250 mg Repeat VPA level on 05/29/2017 at 5 pm (trough) Continue Focalin XR 15 mg QAM D/C all standing and PRN Ativan Start Klonopin 0.5 mg BID scheduled at 9 and 9. start Klonopin 0.5 mg BID prn anxiety maximum total daily dose of 2 mg ( scheduled plus prn) WEllbutrin XL 300 mg QAM Chlorpromazine 25 mg QHS prn insomnia may repeat X 1 discharge planning: solidify IOP for discharge free T4 and MTHFR ordered for 05/29/2017 - Discharge Plan Outpatient Program: intensive outpatient program in [place] - patient will return home with parents to [facility]. he will withdraw from school for rest of this semester
[2017-05-26] MEDS: QUEtiapine XR TAB* 300 MG PO SCH (16:14)
[2017-05-26] MEDS: clonazePAM TAB(*) 0.5 MG PO SCH (20:12)
[2017-05-26] MEDS: Divalproex ER TAB(*) 250 MG PO SCH (20:12)
[2017-05-27] MEDS: BuPROPion XL* 300 MG TAB.XL PO SCH (08:22)
[2017-05-27] MEDS: DEXMETHYLPHENIDATE 15 MG PO SCH (08:22)
[2017-05-27] MEDS: clonazePAM TAB(*) 0.5 MG PO SCH ×2 (08:22→20:56)
[2017-05-27] MEDS: Nicotine Inhaler* 10 MG AMP INH PRN ×3 (11:44→18:53)
--- NOTE | 2017-05-27 11:44 | PN ---
Subjective - Subjective Service Type: 30053 Hosp care 15 min low complexity Subjective: Blake is doing well this morning, telling me "I got the best night's sleep I' ve had in a long time." He is tolerating his medications well and states that his racing thoughts have significantly improved. The patient denies SI and feels like he benefitted from going outside last night for some fresh air with staff. Blake has no significant complaints today. Objective - Appearance Appearance: Well Developed/Nourished Dysmorphic Features: No Hygiene: Normal Grooming: Well Kept - Behavior Psychomotor Activities: Normal Exhibits Abnormal Movement: No - Attitude and Relatedness Attitude and Relatedness: Cooperative Eye Contact: Fair - Speech Quality: Unpressured Latencies: Normal Quantity: Appropriate - Mood Patient's Decription of Mood: "Good" - Affect Observed Affect: Good Affect Consistent with: Euthymia - Thought Process Patient's Thought Process: Coherent Thought Content: No Passive Wish, No Suicidal Planning, No Homicidal Ideation, No Paranoid Ideation - Sensorium Experiencing Hallucinations: No, Sensorium is Clear Type of Hallucinations: Visual: No, Auditory: No, Command: No - Level of Consciousness Level of Consciousness: Alert Orientation: Yes Intact, Yes Orientated to Time, Yes Orientated to Place, Yes Orientated to Person - Impulse Control Impulse Control: Tenuous - Insight and Judgement Insight and Judgement: Fair - Group Participation Particating in Group Activities: Yes - Medication Management Medication Management Adherence: Yes Assessment - Assessment Merits Inpatient Hospitalization: For Immediate Safety, For Stabilization Inpatient DSM-IV Dx: Bipolar Disorder Type I current episode Depressed severe without psychotic features. Attention Deficit Hyperactivity Disorder inattentive type. Generalized Anxiety Disorder Clinical Impression: 22 y.o. 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 Plan - Plan Treatment Plan: Name: BLAKE SHELTON Birthdate: 1995 [id number] The patient is improving with structure milieu programming and med management. He is tolerating his medications, including clonazepam, bupropion XL, Depakote ER, dexmethylphenidate and quetiapine XR, well and with no untoward effects. Will continue to treat the patient on an inpatient basis. Continued Medication Management: Start Medication Medications: Current Medications Acetaminophen (Tylenol Tab*) 650 mg PO Q4H PRN PRN Reason: for pain; or Temp >101 F Last Admin: 05/24/17 10:15 Dose: 650 mg Al Hydrox/Mg Hydrox/Simethicone (Maalox Plus*) 30 ml PO Q4H PRN PRN Reason: INDIGESTION Last Admin: 05/23/17 09:23 Dose: 30 ml Bupropion HCl (Bupropion Xl*) 300 mg PO DAILY [facility] PRN Reason: Protocol Last Admin: 05/27/17 08:22 Dose: 300 mg Chlorpromazine HCl (Thorazine Tab*) 25 mg PO BEDTIME PRN PRN Reason: insomnia Clonazepam (Klonopin Tab(*)) 0.5 mg PO BID@0900,2100 [facility] Last Admin: 05/27/17 08:22 Dose: 0.5 mg Clonazepam (Klonopin Tab(*)) 0.5 mg PO Q4H PRN PRN Reason: ANXIETY Dexmethylphenidate HCl (Focalin Xr (Nf)) 15 mg PO DAILY [facility] Last Admin: 05/27/17 08:22 Dose: 15 mg Divalproex Sodium (Depakote Er Tab(*)) 1,250 mg PO BEDTIME [facility] Last Admin: 05/26/17 20:12 Dose: 1,250 mg Nicotine (Nicotine Inhaler*) 10 mg INH Q2H PRN PRN Reason: CRAVINGS Last Admin: 05/26/17 20:13 Dose: 10 mg Quetiapine Fumarate (Seroquel Xr Tab*) 300 mg PO DAILY@1700 [facility] Last Admin: 05/26/17 16:14 Dose: 300 mg - Discharge Plan Discharge Plan: Inpatient Hospitalization Lab Results - Lab Results Lab Results: 05/25/17 05/25/17 15:10 15:10 WBC 7.3 RBC 5.29 Hgb 16.1 Hct 47 MCV 89 MCH 31 MCHC 34 RDW 13 Plt Count 221 MPV 8 Neut % (Auto) 55.7 Lymph % (Auto) 29.3 [place] % (Auto) 11.4 H Eos % (Auto) 2.8 Baso % (Auto) 0.8 Absolute Neuts (auto) 4.0 Absolute Lymphs (auto) 2.1 Absolute Monos (auto) 0.8 Absolute Eos (auto) 0.2 Absolute Basos (auto) 0.1 Absolute Nucleated RBC 0.01 Nucleated RBC % 0.1 AST 23 ALT 23 Valproic Acid 69.0
[2017-05-27] MEDS: clonazePAM TAB(*) 0.5 MG PO PRN ×2 (15:08→18:53)
[2017-05-27] MEDS: QUEtiapine XR TAB* 300 MG PO SCH (17:01)
[2017-05-27] MEDS: Divalproex ER TAB(*) 250 MG PO SCH (20:56)
[2017-05-28] MEDS: DEXMETHYLPHENIDATE 15 MG PO SCH (08:29)
[2017-05-28] MEDS: clonazePAM TAB(*) 0.5 MG PO SCH ×2 (08:30→20:17)
[2017-05-28] MEDS: BuPROPion XL* 300 MG TAB.XL PO SCH (08:30)
[2017-05-28] MEDS: Nicotine Inhaler* 10 MG AMP INH PRN ×2 (09:02→14:09)
[2017-05-28] MEDS: QUEtiapine XR TAB* 300 MG PO SCH (16:06)
[2017-05-28] MEDS: Divalproex ER TAB(*) 250 MG PO SCH (20:16)
[2017-05-29] MEDS: DEXMETHYLPHENIDATE 15 MG PO SCH (08:14)
[2017-05-29] MEDS: BuPROPion XL* 300 MG TAB.XL PO SCH (08:14)
[2017-05-29] MEDS: clonazePAM TAB(*) 0.5 MG PO SCH ×2 (08:14→20:52)
[2017-05-29 08:24] LABS: HDL Cholesterol 36.8 mg/dL
[2017-05-29] MEDS: Nicotine Inhaler* 10 MG AMP INH PRN ×2 (11:21→18:52)
--- NOTE | 2017-05-29 14:26 | PN ---
Subjective - Subjective Service Type: [id number] Hosp care 15 min low complexity Subjective: Blake was documented as having a difficult day yesterday, as per staff notes, complaining of suicidal ideations and requesting prn medications for anxiety. Today he reports "I feel better, maybe it's the Holiday that stirred things up. " He comes across as talkative and needy. He feels that his stimulant medication is wearing off as the day goes on, leading to inattentiveness and then anxiety about his inattentiveness. "They're teaching me all these coping skills here, but I feel like I can't focus enough to use them." He denies thoughts of harming himself on the unit but cannot contract for safety if discharged, indicating that he still has thoughts of purchasing a gun and shooting himself. Objective - Appearance Appearance: Well Developed/Nourished Dysmorphic Features: No Hygiene: Normal Grooming: Fairly Well Kept - Behavior Psychomotor Activities: Normal Exhibits Abnormal Movement: No - Attitude and Relatedness Attitude and Relatedness: Needy Eye Contact: Fair - Speech Quality: Unpressured Latencies: Normal Quantity: Copious - Mood Patient's Decription of Mood: "Okay" - Affect Observed Affect: Fair Affect Consistent with: Dysphoria - Thought Process Patient's Thought Process: Coherent, Tangential Thought Content: Yes Suicidal Planning, No Passive Wish, No Homicidal Ideation, No Paranoid Ideation - Sensorium Experiencing Hallucinations: No, Sensorium is Clear Type of Hallucinations: Visual: No, Auditory: No, Command: No - Level of Consciousness Level of Consciousness: Alert Orientation: Yes Intact, Yes Orientated to Time, Yes Orientated to Place, Yes Orientated to Person - Impulse Control Impulse Control: Tenuous - Insight and Judgement Insight and Judgement: Fair - Group Participation Particating in Group Activities: Yes - Medication Management Medication Management Adherence: Yes Assessment - Assessment Merits Inpatient Hospitalization: For Immediate Safety, For Stabilization Inpatient DSM-IV Dx: Bipolar Disorder Type I current episode Depressed severe without psychotic features. Attention Deficit Hyperactivity Disorder inattentive type. Generalized Anxiety Disorder Clinical Impression: 22 y.o. 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 Plan - Plan Treatment Plan: Name: BLAKE SHELTON Birthdate: 1995 [id number] The patient is improving slowly with structure milieu programming and med management. He is tolerating his medications, including clonazepam, bupropion XL, Depakote ER, dexmethylphenidate and quetiapine XR, well and with no untoward effects. Will continue to treat the patient on an inpatient basis. Continued Medication Management: Start Medication Medications: Current Medications Acetaminophen (Tylenol Tab*) 650 mg PO Q4H PRN PRN Reason: for pain; or Temp >101 F Last Admin: 05/24/17 10:15 Dose: 650 mg Al Hydrox/Mg Hydrox/Simethicone (Maalox Plus*) 30 ml PO Q4H PRN PRN Reason: INDIGESTION Last Admin: 05/23/17 09:23 Dose: 30 ml Bupropion HCl (Bupropion Xl*) 300 mg PO DAILY [facility] PRN Reason: Protocol Last Admin: 05/29/17 08:14 Dose: 300 mg Chlorpromazine HCl (Thorazine Tab*) 25 mg PO BEDTIME PRN PRN Reason: insomnia Clonazepam (Klonopin Tab(*)) 0.5 mg PO BID@0900,2100 [facility] Last Admin: 05/29/17 08:14 Dose: 0.5 mg Clonazepam (Klonopin Tab(*)) 0.5 mg PO Q4H PRN PRN Reason: ANXIETY Last Admin: 05/27/17 18:53 Dose: 0.5 mg Dexmethylphenidate HCl (Focalin Xr (Nf)) 15 mg PO DAILY [facility] Last Admin: 05/29/17 08:14 Dose: 15 mg Divalproex Sodium (Depakote Er Tab(*)) 1,250 mg PO BEDTIME [facility] Last Admin: 05/28/17 20:16 Dose: 1,250 mg Nicotine (Nicotine Inhaler*) 10 mg INH Q2H PRN PRN Reason: CRAVINGS Last Admin: 05/29/17 11:21 Dose: 10 mg Quetiapine Fumarate (Seroquel Xr Tab*) 300 mg PO DAILY@1700 [facility] Last Admin: 05/28/17 16:06 Dose: 300 mg - Discharge Plan Discharge Plan: Inpatient Hospitalization Lab Results - Lab Results Lab Results: 05/29/17 05/29/17 07:44 07:44 Hemoglobin A1c 5.0 Triglycerides 77 Cholesterol 129 LDL Cholesterol 77 HDL Cholesterol 36.8
[2017-05-29] MEDS: QUEtiapine XR TAB* 300 MG PO SCH (17:08)
[2017-05-29] MEDS: clonazePAM TAB(*) 0.5 MG PO PRN (18:53)
[2017-05-29] MEDS: Divalproex ER TAB(*) 250 MG PO SCH (20:51)
[2017-05-30] MEDS: clonazePAM TAB(*) 0.5 MG PO SCH ×2 (08:14→20:37)
[2017-05-30] MEDS: DEXMETHYLPHENIDATE 15 MG PO SCH (08:14)
[2017-05-30] MEDS: BuPROPion XL* 300 MG TAB.XL PO SCH (08:15)
[2017-05-30] MEDS: Nicotine Inhaler* 10 MG AMP INH PRN (11:32)
[2017-05-30] MEDS: clonazePAM TAB(*) 0.5 MG PO PRN (11:53)
--- NOTE | 2017-05-30 12:43 | PN ---
Subjective - Subjective Service Type: [id number] Hosp care 15 min low complexity Subjective: Blake was placed on 1:1 observations last night after alerting staff that he was feeling suicidal. Today, he denies SI and states "I don't know what comes over me. It's worse in the nighttime. I just start feeling hopeless about my situation, like nothings getting better and I'm just as messed up as the day I came in here." He feels like he is tolerating his medications well and denies untoward effects such as treatment-emergent agitation or EPS. He states that he 's afraid that the unit will take his outside privileges away, stating "That's the only thing to look forward to." Blake is aware that Dr. Amanda is returning tomorrow and that questions related to med changes or target discharge dates must be negotiated with that provider. He contracts for safety here on the unit and appropriately requests discontinuation of 1:1 obs. Objective - Appearance Appearance: Well Developed/Nourished Dysmorphic Features: No Hygiene: Normal Grooming: Well Kept - Behavior Psychomotor Activities: Normal Exhibits Abnormal Movement: No - Attitude and Relatedness Attitude and Relatedness: Cooperative Eye Contact: Good - Speech Quality: Unpressured Latencies: Normal Quantity: Appropriate - Mood Patient's Decription of Mood: "Sad" - Affect Observed Affect: Constricted Affect Consistent with: Dysphoria - Thought Process Patient's Thought Process: Coherent Thought Content: No Passive Wish, No Suicidal Planning, No Homicidal Ideation, No Paranoid Ideation - Sensorium Experiencing Hallucinations: No, Sensorium is Clear Type of Hallucinations: Visual: No, Auditory: No, Command: No - Level of Consciousness Level of Consciousness: Alert Orientation: Yes Intact, Yes Orientated to Time, Yes Orientated to Place, Yes Orientated to Person - Impulse Control Impulse Control: Tenuous - Insight and Judgement Insight and Judgement: Fair - Group Participation Particating in Group Activities: Yes - Medication Management Medication Management Adherence: Yes Assessment - Assessment Merits Inpatient Hospitalization: For Immediate Safety, For Stabilization Inpatient DSM-IV Dx: Bipolar Disorder Type I current episode Depressed severe without psychotic features. Attention Deficit Hyperactivity Disorder inattentive type. Generalized Anxiety Disorder Clinical Impression: 22 y.o. 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 Plan - Plan Treatment Plan: Name: BLAKE SHELTON Birthdate: 1995 [id number] The patient continues to be symptomatic of episodic SI, particularly during the evenings, with limited response so far to milieu programming and med management. He is tolerating his medications, including clonazepam, bupropion XL, Depakote ER, dexmethylphenidate and quetiapine XR, well and with no untoward effects. Will continue to treat the patient on an inpatient basis. Continued Medication Management: Start Medication Medications: Current Medications Acetaminophen (Tylenol Tab*) 650 mg PO Q4H PRN PRN Reason: for pain; or Temp >101 F Last Admin: 05/24/17 10:15 Dose: 650 mg Al Hydrox/Mg Hydrox/Simethicone (Maalox Plus*) 30 ml PO Q4H PRN PRN Reason: INDIGESTION Last Admin: 05/23/17 09:23 Dose: 30 ml Bupropion HCl (Bupropion Xl*) 300 mg PO DAILY [facility] PRN Reason: Protocol Last Admin: 05/30/17 08:15 Dose: 300 mg Chlorpromazine HCl (Thorazine Tab*) 25 mg PO BEDTIME PRN PRN Reason: insomnia Last Admin: 05/29/17 20:51 Dose: 25 mg Clonazepam (Klonopin Tab(*)) 0.5 mg PO BID@0900,2100 [facility] Last Admin: 05/30/17 08:14 Dose: 0.5 mg Clonazepam (Klonopin Tab(*)) 0.5 mg PO Q4H PRN PRN Reason: ANXIETY Last Admin: 05/30/17 11:53 Dose: 0.5 mg Dexmethylphenidate HCl (Focalin Xr (Nf)) 15 mg PO DAILY [facility] Last Admin: 05/30/17 08:14 Dose: 15 mg Divalproex Sodium (Depakote Er Tab(*)) 1,250 mg PO BEDTIME [facility] Last Admin: 05/29/17 20:51 Dose: 1,250 mg Nicotine (Nicotine Inhaler*) 10 mg INH Q2H PRN PRN Reason: CRAVINGS Last Admin: 05/30/17 11:32 Dose: 10 mg Quetiapine Fumarate (Seroquel Xr Tab*) 300 mg PO DAILY@1700 [facility] Last Admin: 05/29/17 17:08 Dose: 300 mg - Discharge Plan Discharge Plan: Inpatient Hospitalization Lab Results - Lab Results Lab Results: 05/29/17 05/29/17 07:44 07:44 Hemoglobin A1c 5.0 Triglycerides 77 Cholesterol 129 LDL Cholesterol 77 HDL Cholesterol 36.8
[2017-05-30] MEDS: QUEtiapine XR TAB* 300 MG PO SCH (16:53)
[2017-05-30 18:23] LABS: Free T4 0.75 ng/dL (0.61-1.12)
[2017-05-30] MEDS: Divalproex ER TAB(*) 250 MG PO SCH (22:56)
[2017-05-31] MEDS: clonazePAM TAB(*) 0.5 MG PO PRN (03:35)
[2017-05-31] MEDS: BuPROPion XL* 300 MG TAB.XL PO SCH (08:18)
[2017-05-31] MEDS: clonazePAM TAB(*) 0.5 MG PO SCH (08:18)
[2017-05-31] MEDS: DEXMETHYLPHENIDATE 15 MG PO SCH (08:18)
[2017-05-31] MEDS: Nicotine Inhaler* 10 MG AMP INH PRN ×2 (11:07→19:57)
--- NOTE | 2017-05-31 11:22 | PN ---
Subjective - Subjective Service Type: [id number] Hosp care 25 min moderate complexity Subjective: all staff documentation over holiday weekend reviewed in detail including physician,nursing,social work,therapist, and medication reconciliation technician notes. I interviewed Blake for 45 minutes this morning and completed mental status evaluation. subsequently, I made major medication revisions secondary to persistent mixed affective symptoms and suicidality which necessitated Blake being placed on close observation over the weekend. In summary, Blake exhibited symptoms of ongoing affective dysregulation over the weekend as characterized by racing thoughts, rapid shifts in mood from irritable to sad/dysphoric to enthusiastic/expansive. irritable with father on when parents visiting on floor. that night noted by staff to be crying in his bed with covers rolled up over his head. mood instability lasted through out the . Slept 6 to 7 hours per night over iday (not sufficient sleep) and did not feel well rested upon awakening each morning. on Wednesday Blake had severe anxiety and agitation most of day and had intrusive thoughts of wanting to end his life. He was evaluated by Dr. Nation on Wednesday05/29/2017 and placed on one to one observation as he was unable to contract for safety. Mental Status exam today: Blake presents as well related and well nourished 22 yo. speech is hyperverbal and at times mildly pressured. Mood: describes mood as shifting from very sad/tearful to irritable to at other times expansive/hypomanic. affect is full range with elevated amplitude. Thought process is coherent. psychomotor: Blake continues to experience periods of agitation and describes on going and distressing racing thoughts which he is unable to stop. He does not have flight of ideas, irrelevant or illogic thinking. no evidence of grandiose delusions, paranoia, obsessions or compulsions. also present and causing Jacson distress are: difficulty concentrating, distractability, worry/anxious apprehension about multiple things including school, his future, his girlfriend, money, his parents. Blake is alert and has a clear sensorium. His insight and judgment are fair. impulse control fair. Valproic Acid level on 1250 mg of VPA is 104 (05/29/2017) TSH 0.64 Free T4 0.75 Assessment - Assessment Merits Inpatient Hospitalization: For Immediate Safety, For Stabilization, For Discharge Planning, Pending Safe DC Plan Inpatient DSM-IV Dx: Bipolar Disorder Type I current episode mixed severe without psychotic features. Attention Deficit Hyperactivity Disorder inattentive type. Generalized Anxiety Disorder Clinical Impression: 22 year old with bipolar disorder, ADHD, JEFFREY admitted last week with SI and severe bipolar depression. Despite initial beneficial response to medication changes, patient's mental status deteriorated over weekend with escalating mood dysregulation, psychomotor agitation, anxiety, racing thoughts, intrusive thoughts of suicide necessitating placing patient on one to one obsevation and suicide precautions over the weekend. Patient contracts for safety today. His total sleep is better but still inadequate (only getting 6 to 7 hours nightly) patient continues with insomnia. Patient continues to require in patient level of psychiatric to provide for his safety until suicidal ideation has remitted.patient is benefitting from [facility] which is teaching him about his illness and fostering strategies for managing his mood, anxiety and attentional difficulties. discharge plan is to solidify intensive outpatient programming in young adult program in [place] and for patient to withdraw from school in order to focus on recovery and treatment. Plan - Plan Continued Medication Management: Different Medication Medications: Current Medications Plan: Medication Changes as follows discontinue all PRN and Scheduled Klonopin (not effectively controlling symptoms ) Restart Ativan 1 mg TID scheduled at 9 am, 1 PM and 5 PM daily Ativan 1 mg twice daily prn agitation in addition to above scheduled ativan Discontinue Depakote ER 1250 mg QHS (poor response) Start [place] ER 225 mg BID today and then increase to 450 mg BID starting tomorrow Increase Seroquel XR to 500 mg po Q 5 pm daily Change Chlorpromazine to 50 mg qhs prn insomnia and repeat X 1 if needed Continue Wellbutrin XL 300 mg qam Continue Focalin XR 15 mg QAM Add Ritalin IR 10 mg at 3 pm daily MTHFR pending Total T4 sent EKG ordered for tomorrow to check baseline QT interval given increase in seroquel - Discharge Plan Discharge Plan: Outpatient Follow Up - return to [facility] with parents and attend IOP program Outpatient Program: withdrawal from college for this semester
--- NOTE | 2017-05-31 11:41 | PN ---
MHU: Group Therapy Note - Service Type Service Type: [id number] Group Psychotherapy - Cognitive Behavioral Group Therapy ( CBT):Patient was attentive and participatory in CBT programming this morning, and remained in good behavioral control. Patient expressed positive insights regarding relevant treatment interventions and goals.
[2017-05-31 13:00] LABS: T4 7.38 mcg/mL (6.09-12.23)
[2017-05-31] MEDS ORDERED: LORazepam TAB(*) 1 MG PO ONE (14:00)
[2017-05-31] MEDS ORDERED: LORazepam TAB(*) 1 MG PO SCH (17:00)
[2017-05-31] MEDS ORDERED: Lithium Carbonate ER* 450 MG TAB.ER PO ONE ×2 (17:00→21:00)
[2017-05-31] MEDS: LORazepam TAB(*) 1 MG PO SCH (17:41)
[2017-05-31] MEDS: QUEtiapine XR TAB* 200 MG PO SCH (17:41)
[2017-05-31] MEDS: QUEtiapine XR TAB* 300 MG PO SCH (17:42)
[2017-05-31] MEDS ORDERED: LORazepam TAB(*) 1 MG PO PRN (18:37)
[2017-06-01] MEDS: Lithium Carbonate ER* 450 MG TAB.ER PO SCH ×2 (08:10→21:07)
[2017-06-01] MEDS: DEXMETHYLPHENIDATE 15 MG PO SCH (08:10)
[2017-06-01] MEDS: BuPROPion XL* 300 MG TAB.XL PO SCH (08:10)
[2017-06-01] MEDS: LORazepam TAB(*) 1 MG PO SCH ×3 (08:11→17:06)
[2017-06-01] MEDS: Nicotine Inhaler* 10 MG AMP INH PRN ×2 (11:27→16:11)
--- NOTE | 2017-06-01 11:33 | PN ---
Subjective - Subjective Service Type: [id number] Psychotherapy Subjective: Met with patient X 45 min Blake reports that he slept very well last night. with total duration of 11 hours (which is what is needed for patient's mood to become euthymic). no evidence of somnolence during day today (tolerating increase in seroquel XR to 500 mg very well). no evidence of hand or body tremor. denies polyuria or polydypsia. also denies nausea, dizziness, or gait disturbance. Blake further reports that this is the first day that he has had no suicidal ideation. racing thoughts absent today as well. Patient attended all groups. mood improved. denies agitation. denies feeling irritable or tearful. Patient spoke with [place] insurance account representative yesterday and today by phone. He will be withdrawing from two classes and will take incompletes in two classes. He will return home to [facility] when ready for discharge and he will attend IOP/PHP program Depending on his readiness, he may or may not return to [place] for the spring Objective - Appearance Appearance: Well Developed/Nourished Dysmorphic Features: No Hygiene: Normal Grooming: Well Kept - Behavior Psychomotor Activities: Normal Exhibits Abnormal Movement: No - Attitude and Relatedness Attitude and Relatedness: Cooperative Eye Contact: Good - Speech Quality: Unpressured Latencies: Normal Quantity: Copious - Mood Patient's Decription of Mood: improved today - Affect Observed Affect: Non-labile Affect Consistent with: Dysphoria - Thought Process Patient's Thought Process: Over Inclusive Thought Content: No Passive Wish, No Suicidal Planning, No Homicidal Ideation, No Paranoid Ideation - Sensorium Experiencing Hallucinations: No, Sensorium is Clear Type of Hallucinations: Visual: No, Auditory: No, Command: No - Level of Consciousness Level of Consciousness: Alert Orientation: Yes Intact, Yes Orientated to Time, Yes Orientated to Place, Yes Orientated to Person - Impulse Control Impulse Control: Intact - Insight and Judgement Insight and Judgement: Good - Group Participation Particating in Group Activities: Yes - Medication Management Medication Management Adherence: Yes Assessment - Assessment Merits Inpatient Hospitalization: For Stabilization, For Discharge Planning Inpatient DSM-IV Dx: Bipolar Disorder Type I current episode mixed severe without psychotic features. Attention Deficit Hyperactivity Disorder inattentive type. Generalized Anxiety Disorder Clinical Impression: 22 year old with bipolar disorder, ADHD, JEFFREY admitted last week with SI and severe bipolar depression. Despite initial beneficial response to medication changes, patient's mental status deteriorated over weekend with escalating mood dysregulation, psychomotor agitation, anxiety, racing thoughts, intrusive thoughts of suicide, and inadequate duration of sleep necessitating placing patient on one to one obsevation and suicide precautions over the weekend. Medication Regimen was changed. Depakote ER was discontinued and replaced with [place], Seroquel XR was increased and klonopin was replaced by scheduled Lorazepam with addition of afternoon dose of Ritalin. 24 hours after medication regimen was changed, patient is showing mental status improvement including early remission of SI, increased sleep duration, and greater mood stability. Patient continues to require in patient level of psychiatric care. Discharge plan is to send patient to intensive outpatient programming in young adult program in [place] and for patient to withdraw from school in order to focus on recovery and treatment. Plan - Plan Treatment Plan: medication plan as follows: Continue Seroquel XR 500 mg Q 5 pm to treat mixed bipolar mood symptoms, and to promote sleep Continue Focalin XR 15 mg QAM Continue [place] CR 450 mg BID [place] level to be drawn on 06/03/2017 in AM Continue Ativan 1 mg TID WEllbutrin XL 300 mg QAM Chlorpromazine 50 mg QHS prn insomnia may repeat X 1 discharge planning: solidify IOP for discharge EKG ordered for tomorrow to check QT interval
--- NOTE | 2017-06-01 11:34 | PN ---
MHU: Group Therapy Note - Service Type Service Type: [id number] Group Psychotherapy - Cognitive Behavioral Group Therapy ( CBT):Patient was attentive and participatory in CBT programming this morning, and remained in good behavioral control. Patient expressed positive insights regarding relevant treatment interventions and goals.
[2017-06-01] MEDS: Methylphenidate TAB* 10 MG PO SCH (15:17)
[2017-06-01] MEDS: QUEtiapine XR TAB* 300 MG PO SCH (17:06)
[2017-06-01] MEDS: QUEtiapine XR TAB* 200 MG PO SCH (17:06)
[2017-06-02] MEDS: chlorproMAZINE TAB* 50 MG PO PRN (05:53)
[2017-06-02] MEDS: BuPROPion XL* 300 MG TAB.XL PO SCH (09:14)
[2017-06-02] MEDS: Nicotine Inhaler* 10 MG AMP INH PRN ×2 (09:14→12:57)
[2017-06-02] MEDS: Lithium Carbonate ER* 450 MG TAB.ER PO SCH ×2 (09:14→20:14)
[2017-06-02] MEDS: DEXMETHYLPHENIDATE 15 MG PO SCH (09:14)
[2017-06-02] MEDS: LORazepam TAB(*) 1 MG PO SCH ×3 (09:15→16:33)
--- NOTE | 2017-06-02 11:43 | PN ---
Subjective - Subjective Service Type: [id number] Hosp care 15 min low complexity Subjective: Per Nursing patient has been attending group, medication compliant and has further gains in his mental status in excellent behavioral control on unit. friendly, cooperative manner. Had visitation from father today which went well I met with Blake X 30 min today. He reports that he slept very well last night he slept through the night with one brief mid AM awakening. slept total of 9 hours. feels well rested today. He further reports feeling "alot better past few days since you changed the medications" specifically he reports minimal anxiety, feeling calm, no longer experiencing rapid mood swings, absence of irritability. He reports better ability to sustain his attention and improved clarity in his thinking. "I dont feel like 100 ideas are swimming around in my head like I did before" denies any suicidal ideation today and yesterday Blake reports that stool consistency is hard. He denies blurry vision, dizziness, dry mouth, sweating, polyuria, polydyspsia, tics, involuntary muscle contraction, neck or facial dystonic posturing, trouble swallowing, involuntary eye or tongue movements. Vital Signs: HR 80 BP 120/78 afebrile Objective - Appearance Appearance: Well Developed/Nourished Dysmorphic Features: No Hygiene: Normal Grooming: Well Kept - Behavior Psychomotor Activities: Normal Exhibits Abnormal Movement: No - Attitude and Relatedness Attitude and Relatedness: Cooperative Eye Contact: Good - Speech Quality: Unpressured Latencies: Normal Quantity: Appropriate - Mood Patient's Decription of Mood: "Anxious" - Affect Observed Affect: Good - Thought Process Patient's Thought Process: Coherent Thought Content: No Passive Wish, No Suicidal Planning, No Homicidal Ideation, No Paranoid Ideation - Sensorium Experiencing Hallucinations: No, Sensorium is Clear Type of Hallucinations: Visual: No, Auditory: No, Command: No - Level of Consciousness Level of Consciousness: Alert Orientation: Yes Intact, Yes Orientated to Time, Yes Orientated to Place, Yes Orientated to Person - Impulse Control Impulse Control: Intact - Insight and Judgement Insight and Judgement: Good - Group Participation Particating in Group Activities: Yes - Medication Management Medication Management Adherence: Yes Assessment - Assessment Merits Inpatient Hospitalization: For Stabilization, For Discharge Planning, Pending Safe DC Plan Inpatient DSM-IV Dx: Bipolar Disorder Type I current episode mixed severe without psychotic features. Attention Deficit Hyperactivity Disorder inattentive type. Generalized Anxiety Disorder Clinical Impression: 22 year old with bipolar disorder, ADHD, JEFFREY admitted last week with SI and severe bipolar depression. Despite initial beneficial response to medication changes, patient's mental status deteriorated over weekend with escalating mood dysregulation, psychomotor agitation, anxiety, racing thoughts, intrusive thoughts of suicide, and inadequate duration of sleep necessitating placing patient on one to one obsevation and suicide precautions over the weekend. Medication Regimen was changed. Depakote ER was discontinued and replaced with [place], Seroquel XR was increased and klonopin was replaced by scheduled Lorazepam with addition of afternoon dose of Ritalin. 24 hours after medication regimen was changed, patient is showing mental status improvement including early remission of SI, increased sleep duration, and greater mood stability Discharge plan is to send patient to intensive outpatient programming in young adult program in [place] and for patient to withdraw from school in order to focus on recovery and treatment. Plan - Plan Treatment Plan: medication plan as follows: Continue Seroquel XR 500 mg Q 5 pm to treat mixed bipolar mood symptoms, and to promote sleep Continue Focalin XR 15 mg QAM Continue [place] CR 450 mg BID [place] level to be drawn on 06/03/2017 in AM Continue Ativan 1 mg TID WEllbutrin XL 300 mg QAM Chlorpromazine 50 mg QHS prn insomnia may repeat X 1 discharge planning: solidify IOP for discharge EKG to be reviewed.
[2017-06-02] MEDS: Methylphenidate TAB* 10 MG PO SCH (15:48)
[2017-06-02] MEDS: QUEtiapine XR TAB* 200 MG PO SCH (17:43)
[2017-06-02] MEDS: QUEtiapine XR TAB* 300 MG PO SCH (17:43)
[2017-06-02] MEDS ORDERED: Docusate CAP* 100 MG PO ONE (21:00)
[2017-06-03] MEDS: chlorproMAZINE TAB* 50 MG PO PRN (06:00)
[2017-06-03] MEDS: Docusate CAP* 100 MG PO SCH ×2 (08:42→20:21)
[2017-06-03] MEDS: Lithium Carbonate ER* 450 MG TAB.ER PO SCH ×2 (08:42→20:21)
[2017-06-03] MEDS: BuPROPion XL* 300 MG TAB.XL PO SCH (08:42)
[2017-06-03] MEDS: DEXMETHYLPHENIDATE 15 MG PO SCH (08:42)
[2017-06-03] MEDS: LORazepam TAB(*) 1 MG PO SCH ×3 (08:44→16:55)
[2017-06-03] MEDS: Nicotine Inhaler* 10 MG AMP INH PRN ×2 (13:11→17:00)
--- NOTE | 2017-06-03 13:13 | PN ---
MHU: Group Therapy Note - Service Type Service Type: [id number] Group Psychotherapy - Cognitive Behavioral Group Therapy ( CBT):Patient was attentive and participatory in CBT programming this morning, and remained in good behavioral control. Patient expressed positive insights regarding relevant treatment interventions and goals.
--- NOTE | 2017-06-03 14:03 | PN ---
Subjective - Subjective Subjective: had another excellent day. slept very well last night lithium level drawn 10 min after lithium given so it will need to be repeated again in AM Had visit today with girlfriend, best friend and father. denies tremor, increased thirst, dizziness, stool consistency normal since starting colace Met with Blake X 45 min nino Blake reports that he feels ready for discharge. mood is euthymic. speech. no longer pressured, loud or rapid. Thought process goal directed racing thoughts have remitted. patient reports that he is relieved that he no longer feel suicidal. has not had suicidal thought for past 3 days. concentration improved. able to read a book without getting distracted. enthusiastic about discharge tomorrow. looking forward to attending [facility] hospital program at [facility]. Alert and fully oriented. insight and judgment excellent. We talked in detail about importance of refraining from use of alcohol. Vitals Stable Vital Signs: Temp Pulse Resp BP Pulse Ox 98.1 F 92 16 135/72 100 06/03/17 07:42 06/03/17 07:42 06/03/17 19:16 06/03/17 07:42 06/03/17 07:42 Laboratory Last Values WBC 7.3 10^3/ul (3.5-10.8) 05/25/17 15:10 RBC 5.29 10^6/ul (4.0-5.4) 05/25/17 15:10 Hgb 16.1 g/dl (14.0-18.0) 05/25/17 15:10 Hct 47 % (42-52) 05/25/17 15:10 MCV 89 fL (80-94) 05/25/17 15:10 MCH 31 pg (27-31) 05/25/17 15:10 MCHC 34 g/dl (31-36) 05/25/17 15:10 RDW 13 % (10.5-15) 05/25/17 15:10 Plt Count 221 10^3/ul (150-450) 05/25/17 15:10 MPV 8 um3 (7.4-10.4) 05/25/17 15:10 Neut % (Auto) 55.7 % (38-83) 05/25/17 15:10 Lymph % (Auto) 29.3 % (25-47) 05/25/17 15:10 Edwards % (Auto) 11.4 % (1-9) H 05/25/17 15:10 Eos % (Auto) 2.8 % (0-6) 05/25/17 15:10 Baso % (Auto) 0.8 % (0-2) 05/25/17 15:10 Absolute Neuts (auto) 4.0 10^3/ul (1.5-7.7) 05/25/17 15:10 Absolute Lymphs (auto) 2.1 10^3/ul (1.0-4.8) 05/25/17 15:10 Absolute Monos (auto) 0.8 10^3/ul (0-0.8) 05/25/17 15:10 Absolute Eos (auto) 0.2 10^3/ul (0-0.6) 05/25/17 15:10 Absolute Basos (auto) 0.1 10^3/ul (0-0.2) 05/25/17 15:10 Absolute Nucleated RBC 0.01 10^3/ul 05/25/17 15:10 Nucleated RBC % 0.1 05/25/17 15:10 Sodium 137 mmol/L (133-145) 05/20/17 11:50 Potassium 4.2 mmol/L (3.5-5.0) 05/20/17 11:50 Chloride 104 mmol/L (101-111) 05/20/17 11:50 Carbon Dioxide 27 mmol/L (22-32) 05/20/17 11:50 Anion Gap 6 mmol/L (2-11) 05/20/17 11:50 BUN 20 mg/dL (6-24) 05/20/17 11:50 Creatinine 1.04 mg/dL (0.67-1.17) 05/20/17 11:50 Est GFR ( Amer) 115.9 (>60) 05/20/17 11:50 Est GFR (Non-Af Amer) 90.2 (>60) 05/20/17 11:50 BUN/Creatinine Ratio 19.2 (8-20) 05/20/17 11:50 Glucose 92 mg/dL (70-100) 05/20/17 11:50 Hemoglobin A1c 5.0 % (4.0-5.6) 05/29/17 07:44 Calcium 10.1 mg/dL (8.6-10.3) 05/20/17 11:50 Total Bilirubin 1.00 mg/dL (0.2-1.0) 05/20/17 11:50 AST 23 U/L (13-39) 05/25/17 15:10 ALT 23 U/L (7-52) 05/25/17 15:10 Alkaline Phosphatase 64 U/L (34-104) 05/20/17 11:50 Total Protein 7.6 g/dL (6.4-8.9) 05/20/17 11:50 Albumin 5.0 g/dL (3.2-5.2) 05/20/17 11:50 Globulin 2.6 g/dL (2-4) 05/20/17 11:50 Albumin/Globulin Ratio 1.9 (1-3) 05/20/17 11:50 Triglycerides 77 mg/dL 05/29/17 07:44 Cholesterol 129 mg/dL 05/29/17 07:44 LDL Cholesterol 77 mg/dL 05/29/17 07:44 HDL Cholesterol 36.8 mg/dL 05/29/17 07:44 TSH 0.64 mcIU/mL (0.34-5.60) 05/20/17 11:50 Free T4 0.75 ng/dL (0.61-1.12) 05/30/17 17:13 Thyroxine (T4) 7.38 mcg/mL (6.09-12.23) 05/30/17 17:13 Salicylates < 2.50 mg/dL (<30) 05/20/17 11:50 Urine Opiates Screen None detected (None Detect) 05/20/17 11:30 Acetaminophen < 15 mcg/mL 05/20/17 11:50 Ur Barbiturates Screen None detected (None Detect) 05/20/17 11:30 Valproic Acid 104.0 mcg/mL (50-100) H 05/30/17 17:13 Ur Phencyclidine Scrn None detected (None Detect) 05/20/17 11:30 Ur Amphetamines Screen None detected (None Detect) 05/20/17 11:30 U Benzodiazepines Scrn None detected (None Detect) 05/20/17 11:30 [place] 0.46 mmol/L (0.6-1.2) L 06/03/17 08:58 Urine Cocaine Screen None detected (None Detect) 05/20/17 11:30 U Cannabinoids Screen Presumptive positive (None Detect) H 05/20/17 11:30 Serum Alcohol < 10 mg/dL (<10) 05/20/17 11:50 Thyroglobulin Antibody <1.8 IU/mL (<4.0) 05/30/17 17:13 Thyroid Peroxidase Ab 0.91 IU/mL (<9) 05/30/17 17:13 MTHFR [id number] Mutation Negative (Negative) 05/31/17 07:44 MTHFR [id number] Mutation Homozygous (Negative) 05/31/17 07:44 MTHFR Interpretation See comment 05/31/17 07:44 MTHFR Reviewed By See comment 05/31/17 07:44 Assessment - Assessment Merits Inpatient Hospitalization: For Discharge Planning Inpatient DSM-IV Dx: Bipolar Disorder Type I current episode mixed severe without psychotic features. Attention Deficit Hyperactivity Disorder inattentive type. Generalized Anxiety Disorder Clinical Impression: 22 year old with bipolar disorder, ADHD, JEFFREY admitted last week with mixed affective epsidoe and active SI. Patient mental status greatly improved with treatment. Patient is euthymic. racing thoughts and suicidal ideation have remitted completely. he is sleeping 9 hours per \ night. rate and volume of speech are normal. Patient feels ready for discharge and i am in agreement that he is psychiatrically stable and ready for discharge. I spoke with father nino who has seen Blake on a daily basis since he was admitted here. He feels Blake's mental status is improved and agrees with discharge after lunch tomorrow. Plan - Plan Treatment Plan: plan is to discharge patient home tomorrow. father will drive him back to [facility] Patient will follow up at [facility] in [facility] Continue Seroquel XR 500 mg Q 5 pm to treat mixed bipolar mood symptoms, and to promote sleep Continue Focalin XR 15 mg QAM Continue [place] CR 450 mg BID [place] level to be drawn on 06/04/2017 at 6 AM Continue Ativan 1 mg TID WEllbutrin XL 300 mg QAM Chlorpromazine 50 mg QHS prn insomnia may repeat X 1
[2017-06-03] MEDS: Methylphenidate TAB* 10 MG PO SCH (14:54)
--- NOTE | 2017-06-03 16:36 | PN ---
[facility]: Group Therapy Note - Service Type Service Type: 20065 Group Psychotherapy - Medication Education Group: Patient was attentive and participatory in group, and remained in good behavioral control. Patient expressed positive insights regarding relevant treatment interventions. Patient stated understanding of material discussed and had appropriate questions.
[2017-06-03] MEDS: QUEtiapine XR TAB* 300 MG PO SCH (16:55)
[2017-06-03] MEDS: QUEtiapine XR TAB* 200 MG PO SCH (16:55)
[2017-06-03] MEDS ORDERED: Lithium Carbonate ER* 450 MG TAB.ER PO ONE (23:00)
[2017-06-04] MEDS: chlorproMAZINE TAB* 50 MG PO PRN (02:35)
[2017-06-04 07:57] VITALS: BP 122/81
[2017-06-04] MEDS: Docusate CAP* 100 MG PO SCH (08:26)
[2017-06-04] MEDS: DEXMETHYLPHENIDATE 15 MG PO SCH (08:26)
[2017-06-04] MEDS: BuPROPion XL* 300 MG TAB.XL PO SCH (08:26)
[2017-06-04] MEDS: Lithium Carbonate ER* 450 MG TAB.ER PO SCH (09:46)
[2017-06-04] MEDS: LORazepam TAB(*) 1 MG PO SCH ×2 (09:48→13:25)
--- NOTE | 2017-06-04 11:48 | PN ---
[facility]: Group Therapy Note - Service Type Service Type: 80127 Group Psychotherapy - Cognitive Behavioral Group Therapy ( CBT):Patient was attentive and participatory in CBT programming this morning, and remained in good behavioral control. Patient expressed positive insights regarding relevant treatment interventions and goals.
--- NOTE | 2017-06-04 12:49 | DS ---
Treatment Course & Assessment Clinical Course & Impression: 22 year old with bipolar disorder, ADHD, JEFFREY admitted last week with mixed affective epsidoe and active SI. Patient mental status greatly improved with treatment. Patient is euthymic. racing thoughts and suicidal ideation have remitted completely. he is sleeping 9 hours per \ night. rate and volume of speech are normal. Patient feels ready for discharge and i am in agreement that he is psychiatrically stable and ready for discharge. I spoke with father nino who has seen Blake on a daily basis since he was admitted here. He feels Blake's mental status is improved and agrees with discharge after lunch tomorrow. Inpatient DSM-IV Dx: Bipolar Disorder Type I current episode mixed severe without psychotic features. Attention Deficit Hyperactivity Disorder inattentive type. Generalized Anxiety Disorder Discharge Planning - Discharge Planning Medications: Current Medications Acetaminophen (Tylenol Tab*) 650 mg PO Q4H PRN PRN Reason: for pain; or Temp >101 F Last Admin: 05/24/17 10:15 Dose: 650 mg Al Hydrox/Mg Hydrox/Simethicone (Maalox Plus*) 30 ml PO Q4H PRN PRN Reason: INDIGESTION Last Admin: 05/23/17 09:23 Dose: 30 ml Bupropion HCl (Bupropion Xl*) 300 mg PO DAILY KARIN PRN Reason: Protocol Last Admin: 06/04/17 08:26 Dose: 300 mg Chlorpromazine HCl (Thorazine Tab*) 50 mg PO BEDTIME PRN PRN Reason: insomnia Last Admin: 06/04/17 02:35 Dose: 50 mg Dexmethylphenidate HCl (Focalin Xr (Nf)) 15 mg PO DAILY [facility] Last Admin: 06/04/17 08:26 Dose: 15 mg Docusate Sodium (Colace Cap*) 100 mg PO BID KARIN Last Admin: 06/04/17 08:26 Dose: 100 mg [place] Carbonate ([place] Carbonate Er Tab*) 450 mg PO 0900,2100 [facility] Last Admin: 06/04/17 09:46 Dose: 450 mg Lorazepam (Ativan Tab(*)) 1 mg PO 0900,1300,1700 KARIN Last Admin: 06/04/17 09:48 Dose: 1 mg Lorazepam (Ativan Tab(*)) 1 mg PO Q4H PRN PRN Reason: ANXIETY Last Admin: 06/02/17 20:16 Dose: 1 mg Methylphenidate HCl (Ritalin Tab*) 10 mg PO DAILY@1500 KARIN Last Admin: 06/03/17 14:54 Dose: 10 mg Nicotine (Nicotine Inhaler*) 10 mg INH Q2H PRN PRN Reason: CRAVINGS Last Admin: 06/03/17 17:00 Dose: 10 mg Quetiapine Fumarate (Seroquel Xr Tab*) 300 mg PO DAILY@1700 K[facility]IN Last Admin: 06/03/17 16:55 Dose: 300 mg Quetiapine Fumarate (Seroquel Xr Tab*) 200 mg PO DAILY@1700 KARIN Last Admin: 06/03/17 16:55 Dose: 200 mg Discharge Planning: Prescriptions provided for discharge [] Yes [] No Follow up care details as per social work arrangements. Patient response to discharge plan: [] eager for discharge [] agreeable with discharge plan [] ambivalent about discharge [] disagrees with discharge today
== END 2017-06-04 13:30 | disposition home or self-care (01) | DRG 753 ==
LOC: ED 10:50 → BSU 17:50
PROVIDERS: ADMIT Psychiatry & Neurology Psychiatry; ATTEND Psychiatry & Neurology Psychiatry
PROC: GZHZZZZ Group Psychotherapy (ICD-10-PCS; principal; 2017-05-24)
DX: F31.63 Bipolar disorder, current episode mixed, severe, without psychotic features (principal); R45.851 Suicidal ideations; F90.0 Attention-deficit hyperactivity disorder, predominantly inattentive type; F41.1 Generalized anxiety disorder; G47.00 Insomnia, unspecified; F10.10 Alcohol abuse, uncomplicated; F17.210 Nicotine dependence, cigarettes, uncomplicated; F12.10 Cannabis abuse, uncomplicated; Y90.0 Blood alcohol level of less than 20 mg/100 ml; Z82.49 Family history of ischemic heart disease and other diseases of the circulatory system; Z83.3 Family history of diabetes mellitus
CPT/HCPCS: 36415; 80053; 80061; 80164; 80178; 80307; 80320; 80329; 81291; 83036; 84436; 84439; 84443; 84450; 84460; 85025; 86376; 86800; 90834; 90853; 93005; 99222; 99231; 99232; 99238; A9270-GY; G0480